=== PATIENT | female | born 1975 | race Caucasian/White ===

== ENCOUNTER 2020-01-05 08:04 | Emergency (ER) | payer MEDICAID, OTHER ==
[~2020-01-05] VITALS: Ht 175.3 cm; Wt 96.0 kg
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
[2020-01-05 08:54] LABS: BASOPHILS # (AUTO) 0.03 x10^3/uL (0-0.1); BASOPHILS % (AUTO) 1 % (0-1); EOSINOPHILS # (AUTO) 0.11 x10^3/uL (0-0.4); EOSINOPHILS % (AUTO) 2 % (1-7); LYMPHOCYTES # (AUTO) 2.11 x10^3/uL (1-3.4); LYMPHOCYTES % (AUTO) 44 % (22-44); MD NO; MEAN CORPUSCULAR HEMOGLOBIN 29.7 pg (27.0-34.8); MEAN PLATELET VOLUME 8.6 fL (7.4-10.4); MONOCYTES # (AUTO) 0.35 x10^3/uL (0.2-0.8); MONOCYTES % (AUTO) 7 % (2-9); NEUTROPHILS # (AUTO) 2.22 x10^3/uL (1.8-6.8); NEUTROPHILS % (AUTO) 46 % (42-75); PLATELET COUNT 243 x10^3/uL (130-400); RED BLOOD COUNT 4.44 x10^6/uL (3.82-5.3); RED CELL DISTRIBUTION WIDTH 13.7 % (9.6-15.2)
[2020-01-05 09:00] LABS: ALANINE AMINOTRANSFERASE 21 U/L (12-78); ALBUMIN 3.7 g/dL (3.4-5.0); ANION GAP 6 mmol/L (5-15); CALCIUM 8.5 mg/dL (8.5-10.1); CHLORIDE 110 mmol/L (98-107); CREATININE 0.85 mg/dL (0.55-1.02)
[2020-01-05 09:05] LABS: ALKALINE PHOSPHATASE 51 U/L (45-117); BILIRUBIN,TOTAL 0.7 mg/dL (0.2-1.0); TOTAL PROTEIN 7.5 g/dL (6.4-8.2)
--- NOTE | 2020-01-05 09:17 | NUR ---
TASK RN: PT TO US AT THIS TIME, PT NOT ABLE TO PROVIDE URINE SAMPLE YET.
--- NOTE | 2020-01-05 10:15 | NUR ---
PT BACK FROM ULTRA SOUND, URINE COLLECTED
[2020-01-05 10:21] LABS: MICROSCOPIC AUTO
--- NOTE | 2020-01-05 10:30 | NUR ---
TOM TANG AT BEDSIDE TO DISCUSS POC.
[2020-01-05] MEDS ORDERED: SODIUM CHLORIDE FLUSH 10ML SYR IVF ONE (11:00)
[2020-01-05] MEDS ORDERED: OMNIPAQUE 350 MG/ML, 100ML BOTTLE ONE (11:09)
--- NOTE | 2020-01-05 11:40 | NUR ---
TOM TANG AT BEDSIDE FOR PELVIC EXAM.
--- NOTE | 2020-01-05 11:55 | NUR ---
MOLDER LABELS ONC AT BEDSIDE FOR EVAL
--- NOTE | 2020-01-05 12:48 | NUR ---
FURNACE LINER ONC AT BEDSIDE FOR PELVIC EXAM
[2020-01-05 12:49] VITALS: BP 109/49
--- NOTE | 2020-01-05 13:18 | NUR ---
DISCHARGE INSTRUCTIONS REVIEWED
== END 2020-01-05 13:32 | disposition home or self-care (01) ==
LOC: ED 08:56
DX: N93.9 Abnormal uterine and vaginal bleeding, unspecified (principal); R10.2 Pelvic and perineal pain; R42 Dizziness and giddiness
CPT/HCPCS: 36415; 74177; 76830; 80053; 81001; 84703; 85025; 87077; 87086; 87186; 99285; Q9967

== ENCOUNTER 2020-01-11 08:38 | Outpatient (CLI) | payer OTHER ==
[2020-01-11] MEDS ORDERED: OMEG1CAP6 PO (09:28)
[2020-01-11] MEDS ORDERED: MULT-516 PO (09:28)
[2020-01-11] MEDS ORDERED: VITAMIN D COMPLEX PO (09:28)
[2020-01-11 10:23] LABS: INTERNATIONAL NORMALIZED RATIO 0.94 (0.93-1.1)
== END 2020-01-11 23:59 | disposition home or self-care (01) ==
LOC: STAR 08:38
PROVIDERS: ATTEND Nurse Practitioner Primary Care
DX: Z01.818 Encounter for other preprocedural examination (principal); Z11.59 Encounter for screening for other viral diseases; N85.00 Endometrial hyperplasia, unspecified; R93.89 Abnormal findings on diagnostic imaging of other specified body structures
CPT/HCPCS: 36415; 85610; 85730; 86304; U0001

== ENCOUNTER 2020-01-15 08:36 | Day surgery (SDC) | payer MEDICAID, OTHER ==
[~2020-01-15] VITALS: Ht 176.5 cm; Wt 94.0 kg
[~2020-01-15 08:36] MED LIST: MULT-516 PO; OMEG1CAP6 PO; VITAMIN D COMPLEX PO
[2020-01-15 08:57] VITALS: BP 90/56
[2020-01-15] MEDS ORDERED: LACTATED RINGERS 1,000 ML IV SCH (09:01)
[2020-01-15] MEDS ORDERED: CHLORHEXIDINE 15 ML UDC MM STA (09:02)
[2020-01-15] MEDS ORDERED: CEFOTETAN PMX 2GM/50ML 50 ML IV STA (09:18)
[2020-01-15] MEDS ORDERED: MIDAZOLAM 1 MG/ML, 2ML ONE (10:37)
[2020-01-15] MEDS ORDERED: FENTANYL PF 100 MCG/2ML ONE ×2 (10:37→12:20)
[2020-01-15] MEDS ORDERED: PROPOFOL 10 MG/ML, 100ML IV ONE (10:45)
[2020-01-15] MEDS ORDERED: LACTATED RINGERS 1,000 ML ONE (10:45)
[2020-01-15] MEDS ORDERED: ONDANSETRON 2MG/ML, 2ML ONE (10:45)
[2020-01-15] MEDS ORDERED: KETOROLAC 30 MG/1 ML ONE (10:45)
[2020-01-15] MEDS ORDERED: DEXAMETHASONE 4 MG/ML, 1ML ONE (10:45)
[2020-01-15] MEDS ORDERED: GLYCOPYRROLATE 0.4 MG/2 ML, 2ML ONE (10:45)
[2020-01-15] MEDS ORDERED: HYDROmorphone 1 MG/ML, 1ML INJ IVPush PRN (11:00)
[2020-01-15] MEDS ORDERED: ONDANSETRON 2MG/ML, 2ML IVPush PRN (11:00)
[2020-01-15] MEDS ORDERED: OXYcodone 5 MG/5 ML ORAL.SOL UDC PO PRN (11:00)
[2020-01-15] MEDS ORDERED: FENTANYL PF 100 MCG/2ML IV PRN (11:00)
[2020-01-15] MEDS ORDERED: OXYcodone 5 MG/5 ML ORAL.SOL UDC ONE (12:20)
[2020-01-15 12:56] LABS: HCG UR SG 1.017 (1.003-1.030)
== END 2020-01-15 14:40 | disposition home or self-care (01) ==
LOC: OUT 08:36
PROVIDERS: ATTEND Specialist
DX: N93.8 Other specified abnormal uterine and vaginal bleeding (principal); Z11.59 Encounter for screening for other viral diseases; N88.8 Other specified noninflammatory disorders of cervix uteri; D25.9 Leiomyoma of uterus, unspecified; N72 Inflammatory disease of cervix uteri; M19.90 Unspecified osteoarthritis, unspecified site; Z79.899 Other long term (current) drug therapy; Z88.8 Allergy status to other drugs, medicaments and biological substances; Z90.49 Acquired absence of other specified parts of digestive tract; Z90.79 Acquired absence of other genital organ(s); Z80.9 Family history of malignant neoplasm, unspecified
CPT/HCPCS: 36415; 57522; 81025; 86850; 86900; 86923; 88305; J1100; J1885; J2250; J2405; J2704; J3010; J3490; J7120

== ENCOUNTER 2020-01-24 02:40 | Emergency (ER) | payer MEDICAID ==
[~2020-01-24] VITALS: Ht 172.7 cm; Wt 95.2 kg
[2020-01-24] MEDS ORDERED: SODIUM CHLORIDE 0.9% 1,000 ML IV ONE (03:02)
[2020-01-24] MEDS ORDERED: ONDANSETRON 2MG/ML, 2ML ONE (03:15)
[2020-01-24] MEDS ORDERED: MORPHINE SULFATE 4 MG/ML, 1ML ONE (03:16)
[2020-01-24 03:29] LABS: BASOPHILS # (AUTO) 0.03 x10^3/uL (0-0.1); BASOPHILS % (AUTO) 0 % (0-1); EOSINOPHILS # (AUTO) 0.17 x10^3/uL (0-0.4); EOSINOPHILS % (AUTO) 2 % (1-7); LYMPHOCYTES # (AUTO) 1.85 x10^3/uL (1-3.4); LYMPHOCYTES % (AUTO) 19 % (22-44); MD NO; MEAN CORPUSCULAR HEMOGLOBIN 29.6 pg (27.0-34.8); MEAN CORPUSCULAR HGB CONC 33.1 g/dL (32.4-35.8); MEAN CORPUSCULAR VOLUME 89.5 fL (80-100); MEAN PLATELET VOLUME 8.6 fL (7.4-10.4); MONOCYTES # (AUTO) 0.46 x10^3/uL (0.2-0.8); MONOCYTES % (AUTO) 5 % (2-9); NEUTROPHILS # (AUTO) 7.09 x10^3/uL (1.8-6.8); NEUTROPHILS % (AUTO) 74 % (42-75); PLATELET COUNT 210 x10^3/uL (130-400); RED BLOOD COUNT 4.15 x10^6/uL (3.82-5.3); RED CELL DISTRIBUTION WIDTH 12.8 % (9.6-15.2)
[2020-01-24] MEDS ORDERED: OXYcodone/APAP 5/325MG TABLET ONE (03:29)
[2020-01-24] MEDS ORDERED: OXYcodone/APAP 5/325MG TABLET PO ONE (03:30)
[2020-01-24] MEDS ORDERED: MORPHINE SULFATE 4 MG/ML, 1ML IVPush PRN (03:30)
[2020-01-24] MEDS ORDERED: SODIUM CHLORIDE FLUSH 10ML SYR IVF ONE (03:30)
[2020-01-24] MEDS ORDERED: ONDANSETRON 2MG/ML, 2ML IVPush ONE (03:30)
[2020-01-24 03:44] LABS: ALANINE AMINOTRANSFERASE 68 U/L (12-78); ALBUMIN 3.3 g/dL (3.4-5.0); ANION GAP 6 mmol/L (5-15); CALCIUM 8.6 mg/dL (8.5-10.1); CHLORIDE 105 mmol/L (98-107)
[2020-01-24 03:46] LABS: ALKALINE PHOSPHATASE 92 U/L (45-117); BILIRUBIN,TOTAL 0.7 mg/dL (0.2-1.0); TOTAL PROTEIN 7.7 g/dL (6.4-8.2)
--- NOTE | 2020-01-24 04:44 | NUR ---
PATIENT IN BED, NO NOTED ACUTE DISTRESS. PATIENT STATED THAT HE PAIN HAS IMPROVED AND SHE IS "MUCH MORE COMFORTABLE".
[2020-01-24 04:49] LABS: MICROSCOPIC NOT IND
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
[2020-01-24 05:34] VITALS: BP 121/72
== END 2020-01-24 05:37 | disposition home or self-care (01) ==
LOC: ED 04:15
DX: R10.9 Unspecified abdominal pain (principal); R33.9 Retention of urine, unspecified; R10.30 Lower abdominal pain, unspecified; K59.00 Constipation, unspecified; Z90.710 Acquired absence of both cervix and uterus
CPT/HCPCS: 36415; 51702; 80053; 81003; 83690; 85025; 96374; 99284; J2405; J7030

== ENCOUNTER 2020-01-26 18:03 | Emergency (ER) | payer MEDICAID ==
[~2020-01-26] VITALS: Ht 177.8 cm; Wt 92.4 kg
[2020-01-26 18:10] VITALS: BP 99/56
--- NOTE | 2020-01-26 19:00 | NUR ---
JAMA REMOVED, PT INSTRUCTED CAN BE DC ONCE SHE VOIDS.
== END 2020-01-26 19:47 | disposition home or self-care (01) ==
LOC: ED 18:35
DX: Z46.6 Encounter for fitting and adjustment of urinary device (principal); Z90.710 Acquired absence of both cervix and uterus; Z87.891 Personal history of nicotine dependence
CPT/HCPCS: 99281

== ENCOUNTER 2020-08-09 16:16 | Emergency (ER) | payer MEDICAID ==
[~2020-08-09] VITALS: Ht 175.3 cm; Wt 95.0 kg
[2020-08-09 16:30] VITALS: BP 138/76
[2020-08-09] MEDS ORDERED: LIDOCAINE-MPF 1%, 5ML INFIL ONE (17:00)
--- NOTE | 2020-08-09 18:34 | NUR ---
PT LEFT AMA
== END 2020-08-09 18:35 | disposition left against medical advice (07) ==
LOC: ED 18:00
DX: S61.255A Open bite of left ring finger without damage to nail, initial encounter (principal); W54.0XXA Bitten by dog, initial encounter; Y93.89 Activity, other specified; Y92.89 Other specified places as the place of occurrence of the external cause; Y99.8 Other external cause status
CPT/HCPCS: 99283